=== PATIENT | male | born 1960 | race Caucasian/White ===

== ENCOUNTER 2017-06-22 08:44 | Day surgery (SDC) | payer OTHER ==
[~2017-06-22] VITALS: Ht 177.8 cm; Wt 111.1 kg
[~2017-06-22 08:44] MED LIST: ASPIRIN325 MG PO; GABAPENTIN300 M2 PO; INDERAL10 M1 PO; LIPITOR20 M1 PO; OXYCODONE5 M1 PO; PEPCID AC20 MG PO; TRAMADOL HYDROC50 MG PO
[2017-06-22 11:30] VITALS: BP 113/54
== END 2017-06-22 11:15 | disposition home or self-care (01) | DRG 379 ==
LOC: ENDO 08:44 → ORM 11:10 → ENDO 11:10 → ORM 12:15
PROVIDERS: ATTEND Surgery
PROC: 0DJD8ZZ Inspection of Lower Intestinal Tract, Via Natural or Artificial Opening Endoscopic (ICD-10-PCS; principal; 2017-06-22)
DX: K62.5 Hemorrhage of anus and rectum (principal); E78.00 Pure hypercholesterolemia, unspecified; I10 Essential (primary) hypertension; S49.92XS Unspecified injury of left shoulder and upper arm, sequela; X58.XXXS Exposure to other specified factors, sequela; Z87.820 Personal history of traumatic brain injury

== ENCOUNTER 2017-10-29 12:09 | Emergency (ER) | payer OTHER ==
[~2017-10-29] VITALS: Ht 177.8 cm; Wt 100.0 kg
[2017-10-29] MEDS ORDERED: KEFLEX500 MG PO (13:41)
[2017-10-29 13:52] VITALS: BP 120/80
== END 2017-10-29 14:01 | disposition home or self-care (01) | DRG 605 ==
LOC: ED 12:09
DX: S60.022A Contusion of left index finger without damage to nail, initial encounter (principal); S60.411A Abrasion of left index finger, initial encounter; W23.1XXA Caught, crushed, jammed, or pinched between stationary objects, initial encounter; Y93.9 Activity, unspecified; Y92.812 Truck as the place of occurrence of the external cause

== ENCOUNTER 2018-11-21 08:00 | Outpatient (RCR) | payer BC, OTHER ==
[~2018-11-21 08:00] MED LIST changes: +KEFLEX500 MG PO
== END 2018-11-21 09:00 | disposition home or self-care (01) | DRG 552 ==
LOC: PT 08:00
PROVIDERS: ATTEND Nurse Practitioner
DX: M54.2 Cervicalgia (principal)

== ENCOUNTER 2019-05-16 13:40 | Emergency (ER) | payer MEDICARE, OTHER ==
[~2019-05-16] VITALS: Ht 177.8 cm; Wt 110.0 kg
[2019-05-16 15:27] VITALS: BP 105/52
[2019-05-16] MEDS ORDERED: TADALAFIL5 MG PO (15:31)
[2019-05-16] MEDS ORDERED: PAROXETINE HCL20 MG PO (15:31)
[2019-05-16] MEDS ORDERED: LISINOPRIL10 M1 PO (15:31)
[2019-05-16] MEDS ORDERED: ATORVASTATIN CA40 MG PO (15:32)
[2019-05-16] MEDS ORDERED: CYCLOBENZAPR10 MG PO (15:32)
== END 2019-05-16 15:42 | disposition home or self-care (01) ==
LOC: ED 13:40
DX: S00.83XA Contusion of other part of head, initial encounter (principal); G83.24 Monoplegia of upper limb affecting left nondominant side; S12.100S Unspecified displaced fracture of second cervical vertebra, sequela; V89.2XXS Person injured in unspecified motor-vehicle accident, traffic, sequela; W07.XXXA Fall from chair, initial encounter; Y92.009 Unspecified place in unspecified non-institutional (private) residence as the place of occurrence of the external cause; Z87.820 Personal history of traumatic brain injury

== ENCOUNTER 2021-11-15 17:59 | Emergency (ER) | payer MEDICARE ==
[~2021-11-15] VITALS: Ht 177.8 cm; Wt 1118.0 kg
[~2021-11-15 17:59] MED LIST changes: +ATORVASTATIN CA40 MG PO; +CYCLOBENZAPR10 MG PO; +LISINOPRIL10 M1 PO; +PAROXETINE HCL20 MG PO; +TADALAFIL5 MG PO
[2021-11-15 18:31] LABS: HEMATOCRIT 41.7 % (39.0-50.0); HEMOGLOBIN 13.7 g/dl (14.0-18.0); IMMATURE GRANULOCYTES 0.2 % (0.0-5.0); MEAN CELL VOLUME 93.3 fL CALC (80.0-100.0); MEAN CORPUSCULAR HGB 30.6 pG CALC (26.0-32.0); MEAN CORPUSCULAR HGB CONC 32.9 g/dL CAL (32.0-36.0); NEUT# 12.41 thou/uL (1.82-7.42); RED BLOOD COUNT 4.47 mill/uL (4.70-6.10); RED CELL DISTRI WIDTH 13.3 % (11.5-15.5)
[2021-11-15] MEDS ORDERED: LISINOP/HCTZ1 TAB PO (18:31)
[2021-11-15] MEDS ORDERED: TAMSULOSIN HCL0.4 MG PO (18:32)
[2021-11-15] MEDS ORDERED: ESCITALOPRAM OX10 MG PO (18:32)
[2021-11-15 18:43] LABS: ALBUMIN 4.2 g/dL (3.2-5.0); ALKALINE PHOSPHATASE 82 u/l (38-126); ANION GAP 12 (6-22 (CALC)); BILIRUBIN, TOTAL 0.4 mg/dL (0.0-1.4); BUN 18 mg/dL (8-23); BUN/CREATININE RATIO 19 (12-20 (CALC)); CARBON DIOXIDE 28 mmol/l (22-30); CHLORIDE 99 mmol/l (95-108); GFR > 60 ML/MIN (>=60 (CALC)); GFR FOR AFR.AMER. > 60 ML/MIN (>=60 (CALC)); POTASSIUM 3.5 mmol/l (3.5-5.1); SGOT/AST 335 u/l (19-48); SODIUM 134 mmol/l (137-146); TOTAL PROTEIN 7.5 g/dL (6.3-8.2)
[2021-11-15 18:50] LABS: PROTHROMBIN TIME 10.6 SECONDS (9.0-12.5)
[2021-11-15 19:06] VITALS: BP 99/69
== END 2021-11-15 19:21 | disposition short-term general hospital (02) ==
LOC: ED 17:59
PROVIDERS: Emergency Medicine
DX: I21.09 ST elevation (STEMI) myocardial infarction involving other coronary artery of anterior wall (principal); G62.9 Polyneuropathy, unspecified; Z87.820 Personal history of traumatic brain injury; Z89.202 Acquired absence of left upper limb, unspecified level
CPT/HCPCS: J1644